=== PATIENT | female | born 1965 | race African-American/Black ===

== ENCOUNTER 2016-09-23 01:14 | Emergency (ER) | payer OTHER ==
[2016-09-23] MEDS ORDERED: OPTIRAY 350 100 ML VIAL HMH IV ONE (01:15)
[2016-09-23] MEDS ORDERED: DILAUDID 1 MG/ML AMP ONE (04:24)
[2016-09-23] MEDS ORDERED: PROMETHAZINE 25 MG/ML VIAL ONE (04:24)
[2016-09-23] MEDS ORDERED: SODIUM CHLORIDE 0.9% 1,000 ML ONE (04:24)
== END 2016-09-23 06:18 | disposition home or self-care (01) ==
LOC: ER 01:14
DX: K43.2 Incisional hernia without obstruction or gangrene (principal); I10 Essential (primary) hypertension; E78.00 Pure hypercholesterolemia, unspecified; E11.9 Type 2 diabetes mellitus without complications; Z79.4 Long term (current) use of insulin; G40.909 Epilepsy, unspecified, not intractable, without status epilepticus; F17.210 Nicotine dependence, cigarettes, uncomplicated; Z85.3 Personal history of malignant neoplasm of breast
CPT/HCPCS: 36415; 74177; 80053; 81003; 83690; 85025; 96361; 96365; 96375